=== PATIENT | male | born 1995 | race Caucasian/White ===

== ENCOUNTER 2017-09-11 13:55 | Emergency (ER) | payer BC ==
[2017-09-11 14:25] VITALS: BP 158/88
--- NOTE | 2017-09-11 14:38 | UC ---
Complaint Male HPI - HPI Summary HPI Summary: PT C/O BUMPS IN HIS GROIN AREA FOR ABOUT 2 MONTHS. THEY COME AND THEN UPON HEALING SEEM TO LEAVE A SCAR. IT BEGAN WHILE HE WAS SHAVING SO HE STOPPED. HE DENIES HX OF MRSA. GIRLFRIEND DENIES ANY HX OF THE SAME. PT DENIES ANY RISK/ CONCERN FOR STD. HE ALSO DENIES ANY URINARY S/S'S. NO OTHER RASH, FEVER. - History of Current Complaint Chief Complaint: UCSkin Stated Complaint: PERSONAL Time Seen by Provider: 09/11/17 14:27 Hx Obtained From: Patient, Other: - GIRLFRIEND Onset/Duration: Gradual Onset Pain Intensity: 0 Aggravating Factor(s): Other - HEAT Alleviating Factor(s): Nothing Associated Signs And Symptoms: Negative: Fever, Hematuria, Dysuria, Penile Swelling, Penile Discharge - Allergies/Home Medications Allergies/Adverse Reactions: Allergies Allergy/AdvReac Type Severity Reaction Status Date / Time No Known Allergies Allergy Verified 09/11/17 14:25 PMH/Surg Hx/FS Hx/Imm Hx Previously Healthy: Yes - Surgical History Surgical History: None - Family History Known Family History: Positive: None - Social History Occupation: Employed Full-time Lives: With Family Alcohol Use: None Substance Use Type: None Smoking Status (MU): Never Smoked Tobacco - Immunization History Vaccination Up to Date: Yes Review of Systems Constitutional: Negative Skin: Rash - GROIN Eyes: Negative ENT: Negative Respiratory: Negative Cardiovascular: Negative Gastrointestinal: Negative Genitourinary: Negative Motor: Negative Neurovascular: Negative Musculoskeletal: Negative Neurological: Negative Psychological: Negative Is Patient Immunocompromised?: No All Other Systems Reviewed And Are Negative: Yes Physical Exam Triage Information Reviewed: Yes Appearance: Well-Appearing Vital Signs: Initial Vital Signs Temp 97.8 F 09/11/17 14:21 Pulse 79 09/11/17 14:21 Resp 17 09/11/17 14:21 BP 158/88 09/11/17 14:21 Pulse Ox 100 09/11/17 14:21 Vital Signs Reviewed: Yes Eyes: Positive: Conjunctiva Clear ENT: Positive: Normal ENT inspection Neck: Positive: Supple, Nontender, No Lymphadenopathy Respiratory: Positive: Lungs clear, Normal breath sounds Cardiovascular: Positive: RRR, No Murmur Abdomen Description: Positive: Nontender, No Organomegaly, Soft, Other: - NO INGUINAL ADENOPATHY. Negative: Distended, Guarding Male Genital Exam: Positive: Normal Genitalia. Negative: Epididymal Tenderness , Lesions, Scrotum Tenderness (R), Scrotum Tenderness (L), Testicular Tenderness (R), Testicular Tenderness (L), Urethral Discharge Musculoskeletal: Positive: ROM Intact Neurological: Positive: Alert Psychological: Positive: Age Appropriate Behavior Skin Exam: Normal Skin: Positive: rashes - TINY PUSTULES MAINLY TO CREASES OF GROIN AND SUPRAPUBIC AREA. SOME SCARING NOTED WHERE PT STATES PRIOR RASH THAT HAS HEALED. NO INGUINAL ADENOPATHY. Complaint Male Course/Dx - Course Course Of Treatment: RASH C/W TINY PIMPLE TYPE SPOTS IN AREAS WHERE PT WAS SHAVING C/W FOLLICULITIS. WILL TX PO ANTIBIOTIC WITH MRSA COVERAGE AND CLOSE F/ U. NO CONCERN FOR MOLLUSCUM OR HERPES. BP ELEVATED AND NO HX HTN. LIKELY VISIT RELATED. BP TO BE RECHECKED BY PCP ON F/U. - Differential Dx/Diagnosis Provider Diagnoses: FOLLICULITIS. ELEVATED BP. Discharge - Sign-Out/Discharge Documenting (check all that apply): Patient Departure - Discharge Plan Condition: Stable Disposition: HOME Prescriptions: Sulfamethox/Trimethoprim DS* [Bactrim DS 800/160 TAB*] 1 tab PO BID 10 Days #20 tab Patient Education Materials: Folliculitis (ED) Referrals: Shelby Selby [Primary Care Provider] - 7 Days Additional Instructions: STOP ALL SHAVING AND DISPOSE OF THE SHAVER - Billing Disposition and Condition Condition: STABLE Disposition: Home
== END 2017-09-11 14:43 | disposition home or self-care (01) ==
LOC: UCCORT 13:55
DX: L73.9 Follicular disorder, unspecified (principal); R03.0 Elevated blood-pressure reading, without diagnosis of hypertension
CPT/HCPCS: 99202; G0463

== ENCOUNTER 2019-01-05 14:33 | Emergency (ER) | payer SELFPAY ==
[2019-01-05 15:05] VITALS: BP 140/93
--- NOTE | 2019-01-05 15:56 | UC ---
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 He took a single dose of ibuprofen 600mg last evening without relief of pain, used ice briefly today. Work has accommodated and he did paper work today. - History of Current Complaint Chief Complaint: UCLowerExtremity Stated Complaint: WC-LEFT FOOT INJURY Time Seen by Provider: 01/05/19 15:46 Hx Obtained From: Patient Onset/Duration: Sudden Onset, Lasting Days - 1 Severity Initially: Mild Severity Currently: Moderate Pain Intensity: 7 Aggravating Factor(s): Standing, Ambulation Alleviating Factor(s): Ice, OTC Meds Able to Bear Weight: Yes Related History: Occupational Injury - Risk Factors Gout Risk Factors: Negative DVT Risk Factors: Negative Septic Arthritis Risk Factor: Negative - Allergies/Home Medications Allergies/Adverse Reactions: Allergies Allergy/AdvReac Type Severity Reaction Status Date / Time No Known Allergies Allergy Verified 01/05/19 15:05 Home Medications: Home Medications Ibuprofen TAB* [Motrin TAB* 600 MG] 600 mg PO Q8H PRN 01/05/19 [History Confirmed 01/05/19] PMH/Surg Hx/FS Hx/Imm Hx Previously Healthy: Yes - states no hx of hypertension. - Surgical History Surgical History: None - Family History Known Family History: Positive: None, Non-Contributory - Social History Occupation: Employed Full-time Lives: With Family Alcohol Use: None Substance Use Type: None Smoking Status (MU): Never Smoked Tobacco - Immunization History Vaccination Up to Date: Yes Review of Systems All Other Systems Reviewed And Are Negative: Yes Constitutional: Positive: Negative Skin: Positive: Negative Eyes: Positive: Negative ENT: Positive: Negative Respiratory: Positive: Negative Cardiovascular: Positive: Negative Gastrointestinal: Positive: Negative Genitourinary: Positive: Negative Musculoskeletal: Positive: Arthralgia. Negative: Calf Tenderness, Myalgia Neurological: Positive: Negative Psychological: Positive: Negative Is Patient Immunocompromised?: No Physical Exam Triage Information Reviewed: Yes Appearance: Well-Appearing, Pain Distress - mild Vital Signs: Initial Vital Signs Temp 98.5 F 01/05/19 15:02 Pulse 86 01/05/19 15:02 Resp 15 01/05/19 15:02 BP 140/93 01/05/19 15:02 Pulse Ox 99 01/05/19 15:02 ENT: Positive: Normal ENT inspection Respiratory: Positive: Lungs clear, Normal breath sounds Cardiovascular: Positive: RRR, No Murmur Musculoskeletal Exam: Other - Mild swelling, no erythema of lateral left foot. TTP posterior lateral foot over the cuboid, no metatarsal tenderness. No Achilles, heel or calf tenderness. Musculoskeletal: Positive: Strength Intact, ROM Intact - at left ankle and left subtalar joint. Neurological Exam: Normal Neurological: Positive: Alert Lower Extremity Course/Dx - Course Course Of Treatment: Ice, elevation, supportive footwear, ibuprofen as nsaid. Modify work to adapt to need. Referral to orthopedics for assessment and intermediate management. - Differential Dx/Diagnosis Differential Diagnosis/HQI/PQRI: Bursitis, Sprain, Strain, Tendonitis Provider Diagnosis: Sprain of left foot Discharge ED - Sign-Out/Discharge Documenting (check all that apply): Patient Departure All imaging exams completed and their final reports reviewed: Yes - Discharge Plan Condition: Good Disposition: HOME Patient Education Materials: Foot Sprain (ED) Forms: *Work Release Referrals: Shelby Selby [Primary Care Provider] - Additional Instructions: Your blood pressure was elevated today to 140/93; please ensure a follow up blood pressure reading with your primary doctor within a month. Your foot is strained due to the high amount of walking which you do. Ensure continued use of supportive footwear. Use ibuprofen 800mg three times daily with meal, taking it with food, and stopping if you develop nausea or abdominal pain. Please arrange an evaluation with Dr. Avila; this can be cancelled if the foot pain resolves quickly. - Billing Disposition and Condition Condition: GOOD Disposition: Home
== END 2019-01-05 16:55 | disposition home or self-care (01) ==
LOC: UCCORT 14:33
DX: S93.602A Unspecified sprain of left foot, initial encounter (principal); X58.XXXA Exposure to other specified factors, initial encounter; Y92.9 Unspecified place or not applicable
CPT/HCPCS: 99211; G0463